=== PATIENT | female | born 1925 | race Caucasian/White ===

== ENCOUNTER → 2016-04-11 20:29 | Outpatient (CLI) | payer MEDICARE ==
[2014-06-17 16:59] VITALS: BMI 21.1
[~2016-04-11 20:29] MED LIST: CALCIUM 500 + D1 TAB PO; FOLBEE PLUS TAB1 TAB PO; LANOXIN250 MCG PO; LOPID600 MG PO; PRADAXA150 MG PO; SYNTHROID100 MCG; TENORMIN25 MG PO; XARELTO20 MG PO
== END | disposition home or self-care (01) ==
LOC: D.LABREF 20:29
DX: R31.9 Hematuria, unspecified (principal)

== ENCOUNTER → 2016-04-13 09:52 | Outpatient (CLI) | payer MEDICARE ==
[2014-06-17 16:59] VITALS: BMI 21.1
== END | disposition home or self-care (01) ==
LOC: D.CT 09:30
DX: R31.9 Hematuria, unspecified (principal)